=== PATIENT | female | born 2000 | race Two or more races ===

== ENCOUNTER 2021-04-27 21:52 | Emergency (ER) | payer OTHER ==
[2021-04-27 22:02] VITALS: BP 124/76; PULSE 78; TEMP 98.7; BMI 25.1
[2021-04-27] MEDS ORDERED: IBUPROFEN 600 MG TABLET (FP) PO ONE ×2 (23:26→23:36)
[2021-04-27] MEDS ORDERED: METHOCARBAMOL 500 MG TABLET PO ONE (23:26)
[2021-04-27] MEDS ORDERED: METHOCARBAMOL 500 MG TABLET ONE (23:35)
== END 2021-04-28 00:52 | disposition home or self-care (01) ==
LOC: JERFT 21:52
DX: Z04.1 Encounter for examination and observation following transport accident (principal); V89.2XXA Person injured in unspecified motor-vehicle accident, traffic, initial encounter; Y92.9 Unspecified place or not applicable
CPT/HCPCS: 99283-25

== ENCOUNTER 2021-04-29 10:24 | Emergency (ER) | payer OTHER ==
[2021-04-29 10:43] VITALS: BP 123/82; PULSE 75; TEMP 97.9; BMI 24.5
[2021-04-29] MEDS ORDERED: IBUPROFEN 600 MG TABLET (FP) PO ONE ×2 (11:17→11:18)
== END 2021-04-29 11:35 | disposition home or self-care (01) ==
LOC: JERFT 10:24 → JER 10:24 → JERFT 11:35
DX: S13.4XXA Sprain of ligaments of cervical spine, initial encounter (principal); V89.2XXA Person injured in unspecified motor-vehicle accident, traffic, initial encounter; Y92.9 Unspecified place or not applicable
CPT/HCPCS: 99283-25